=== PATIENT | female | born 1945 | race Caucasian/White ===

== ENCOUNTER 2024-03-26 22:21 | Emergency (ER) | payer BC, MEDICARE, OTHER ==
[2024-03-26] MEDS ORDERED: Lidocaine-Prilocaine 2.5% Cream 5 GM TUBE ONE (23:00)
[2024-03-26] MEDS ORDERED: Ibuprofen 600 MG TAB ONE (23:00)
[2024-03-26] MEDS ORDERED: Boostrix 0.5 ML (Tdap) VIAL (>/=7 yrs of age) ONE (23:01)
[2024-03-27] MEDS ORDERED: Bacitracin 1 PK ONE (00:09)
== END 2024-03-27 00:26 | disposition home or self-care (01) ==
LOC: MADERS 22:21
DX: S01.01XA Laceration without foreign body of scalp, initial encounter (principal); Z23 Encounter for immunization; W01.198A Fall on same level from slipping, tripping and stumbling with subsequent striking against other object, initial encounter
CPT/HCPCS: 12002; 70450; 90471; 90715

== ENCOUNTER 2024-04-08 14:06 | Emergency (ER) | payer MEDICARE | END 2024-04-08 14:25 | disposition home or self-care (01) | LOC: MADERS 14:06 | DX: S01.01XD Laceration without foreign body of scalp, subsequent encounter (principal); Z48.02 Encounter for removal of sutures; I10 Essential (primary) hypertension; X58.XXXD Exposure to other specified factors, subsequent encounter ==